=== PATIENT | female | born 1980 | race Two or more races ===

== ENCOUNTER 2017-08-02 12:00 | Emergency (ER) | payer BC ==
[2017-08-02] MEDS ORDERED: Ondansetron 4 MG Tab.DIS ONE (12:36)
[2017-08-02] MEDS ORDERED: Ondansetron 4 MG Tab.DIS PO ONE (12:37)
[2017-08-02 12:38] LABS: CHLORIDE,CL 102 mmol/L (98-115); SODIUM,NA 138 mmol/L (136-145)
--- NOTE | 2017-08-02 12:46 | EDM.PDOC ---
ED HPI GENERAL MEDICAL PROBLEM - General Chief Complaint: Respiratory Problem Stated Complaint: SOB;VOMITING Time Seen by Provider: 08/02/17 12:28 Source of Information: Reports: Patient, Family () History Limitations: Reports: No Limitations - History of Present Illness INITIAL COMMENTS - FREE TEXT/NARRATIVE: Patient presents with complaint of dyspnea. About 1.5 hours ago she suddenly vomited up the whole meal she had eaten just a few minutes earlier and immediately afterward couldn't get her breath for several seconds. She had two more episodes of this over an hour with the last episode being the worst; she couldn't breathe or talk for more than 10 seconds. She isn't sure if she choked on some vomitus or what was preventing her from breathing for sure. She is now breathing and talking normally for the last half hour. She is still a bit nauseated but doesn't feel like the is going to vomit. She admits she does deal with anxiety and panic attacks at times. Her mother recently had to return to the [facility] and she doesn't know when she will get to see her again. She isn't sleeping very well due to anxiety. Prior to today, she hasn' t had problems with vomiting or appetite. She denies the possibility of as she just finished her LMP a week ago. - Related Data Allergies Allergy/AdvReac Type Severity Reaction Status Date / Time No Known Allergies Allergy Verified 08/02/17 12:11 Home Meds: Home Meds Multivitamin [One Daily] 1 tab PO DAILY 08/02/17 [History] ED ROS GENERAL - Review of Systems Review Of Systems: See Below Constitutional: Denies: Fever, Chills, Malaise, Weakness, Decreased Appetite HEENT: Denies: Throat Pain, Vision Change Respiratory: Denies: Shortness of Breath (not now), Wheezing, Cough Cardiovascular: Denies: Chest Pain, Syncope (no LOC) GI/Abdominal: Reports: Nausea, Vomiting. Denies: Abdominal Pain, Decreased Appetite : Denies: Dysuria, Flank Pain, Frequency Musculoskeletal: Reports: No Symptoms Skin: Denies: Cyanosis, Jaundice, Mottled, Pallor, Diaphoresis Neurological: Denies: Confusion, Dizziness, Headache, Seizure, Syncope, Trouble Speaking, Difficulty Walking Psychiatric: Reports: Anxiety. Denies: Agitation, Confusion ED EXAM, GENERAL - Physical Exam Exam: See Below Exam Limited By: No Limitations General Appearance: Alert, WD/WN, No Apparent Distress Eye Exam: Bilateral Eye: EOMI, Normal Inspection, PERRL Ears: Normal External Exam, Hearing Grossly Normal Nose: Normal Inspection, No Blood Throat/Mouth: Normal Inspection, Normal Lips, Normal Voice, No Airway Compromise Head: Atraumatic, Normocephalic Neck: Normal Inspection, Supple, Non-Tender, Full Range of Motion. No: Carotid Bruit Respiratory/Chest: No Respiratory Distress, Lungs Clear, Normal Breath Sounds, No Accessory Muscle Use. No: Crackles, Rales, Rhonchi, Wheezing, Stridor, Retractions Cardiovascular: Regular Rate, Rhythm, No Murmur GI/Abdominal: Normal Bowel Sounds, Soft, Non-Tender, No Organomegaly, No Distention Back Exam: Normal Inspection, Full Range of Motion. No: CVA Tenderness (L), CVA Tenderness (R) Extremities: Normal Inspection, Normal Range of Motion Neurological: Alert, Oriented, Normal Cognition, No Motor/Sensory Deficits Psychiatric: Normal Affect, Anxious Skin Exam: Warm, Dry, Intact, Normal Color, No Rash Course - Vital Signs Last Recorded V/S: Last Vital Signs Temp 98.5 F 08/02/17 12:29 Pulse 100 08/02/17 12:29 Resp 22 H 08/02/17 12:29 BP 121/78 08/02/17 12:29 Pulse Ox 98 08/02/17 12:29 - Orders/Labs/Meds Orders: Active Orders 24 hr Category Date Time Status Chest 2V [CR] Stat Exams 08/02/17 12:09 Ordered Labs: Laboratory Tests 08/02/17 08/02/17 Range/Units 12:08 12:10 WBC 11.3 H (5.0-10.0) 10^3/uL RBC 4.66 (3.80-5.50) 10^6/uL Hgb 12.9 (12.0-16.0) g/dL Hct 38.8 (37.0-47.0) % MCV 83.4 (82.0-92.0) fL MCH 27.6 (27.0-31.0) pg MCHC 33.1 (32.0-36.0) g/dL RDW 13.6 (11.5-14.5) % Plt Count 308 H (150-300) 10^3/uL MPV 6.9 L (7.4-10.4) fL Neut % (Auto) 87.3 H (50.0-70.0) % Lymph % (Auto) 9.1 L (20.0-40.0) % Grayson % (Auto) 2.1 (2.0-8.0) % Eos % (Auto) 0.7 L (1.0-3.0) % Baso % (Auto) 0.8 (0.0-1.0) % Neut # (Auto) 9.9 H (2.5-7.0) 10^3/uL Lymph # (Auto) 1.0 (1.0-4.0) 10^3/uL Grayson # (Auto) 0.2 (0.1-0.8) 10^3/uL Eos # (Auto) 0.1 (0.1-0.3) 10^3/uL Baso # (Auto) 0.1 (0.0-0.1) 10^3/uL Sodium 138 (136-145) mmol/L Potassium 3.8 (3.3-5.3) mmol/L Chloride 102 (98-115) mmol/L Carbon Dioxide 22.2 (21.0-32.0) mmol/L BUN 12 (6-25) mg/dL Creatinine 0.62 (0.51-1.17) mg/dL Est Cr Clr Drug Dosing 95.57 mL/min Estimated GFR (MDRD) > 60 mL/min Glucose 131 H (70-110) mg/dL Calcium 8.7 (8.7-10.3) mg/dL Meds: Medications Discontinued Medications Generic Name Dose Route Start Last Admin Trade Name Freq PRN Reason Stop Dose Admin Ondansetron HCl 4 mg 08/02/17 12:37 08/02/17 12:38 Zofran Odt PO 08/02/17 12:38 4 mg ONETIME ONE Administration Ondansetron HCl Confirm 08/02/17 12:36 Zofran Odt Administered 08/02/17 12:37 Dose 4 mg .ROUTE .STK-MED ONE - Re-Assessments/Exams Free Text/Narrative Re-Assessment/Exam: 08/02/17 13:10 Lab and CXR are normal. Discussed findings and possible etiologies including aspiration and anxiety for her dyspnea episodes. She has been completely back to normal for over an hour and Zofran has helped the nausea. Patient has been stable throughout ER course and discharged with instruction to follow up with PCP tomorrow or early next week. Departure - Departure Time of Disposition: 13:08 Disposition: Home, Self-Care 01 Condition: Good Clinical Impression: Anxiety Dyspnea, unspecified Qualifiers: Dyspnea type: unspecified Qualified Code(s): R06.00 - Dyspnea, unspecified - Discharge Information Referrals: Tereza Moreno MD [Primary Care Provider] - Forms: ED Department Discharge Additional Instructions: 1. Follow up with your PCP in a few days for recheck and to discuss treatment options for anxiety if desired. 2. Return to ER as needed. - My Orders Last 24 Hours: My Active Orders 08/02/17 12:09 Chest 2V [CR] Stat - Assessment/Plan Last 24 Hours: My Active Orders 08/02/17 12:09 Chest 2V [CR] Stat
== END 2017-08-02 13:15 | disposition home or self-care (01) ==
LOC: KA.ED 12:00
DX: R06.00 Dyspnea, unspecified (principal); F41.9 Anxiety disorder, unspecified
CPT/HCPCS: 36415; 71046; 80048; 85025; 99285; A9270